=== PATIENT | female | born 1950 | race Caucasian/White ===

== ENCOUNTER → 2016-10-23 | Day surgery (SDC) | payer OTHER, MEDICARE ==
[~2016-10-23] MED LIST: ASPI81TA2 PO; ATOR20TA; CHOL400C PO; DICL50TA2 PO; ESTR0.5T PO; FENTANYL PF 100 MCG/2 ML VIAL. IV PRN; HYDROMORPHONE 2 MG/ML VIAL. IV PRN; LANS30CA17 PO; LEVO500T38 PO; LIDOCAINE 1% 1 ML SYRINGE. ID PRN; LIDOCAINE 2% PF Vial for OR 5 ML VIAL. ONE; LORA10TA68; METO25TA2 PO; METR500T PO; MORPHINE SULFATE 2 MG/ML DISP.SYRIN. IV PRN; OMEG500C; ONDANSETRON PF 4 MG/2 ML VIAL. IV PRN; POTA99TA PO; PROCHLORPERAZINE 10 MG/2 ML VIAL. IV PRN; PROPOFOL 20 ML IV ONE; SUCR1TAB PO; VALS1TAB22 PO; [UNRECOGNIZED DRUG - CODE] PO
[2016-10-23] MEDS: IV RINGERS,LACTATED 1000ML 1,000 ML IV SCH ×2 (07:00→13:40)
[2016-10-23 09:03] VITALS: BP 127/60
== END | disposition home or self-care (01) ==
LOC: ENDOS 07:03
PROVIDERS: ATTEND Internal Medicine Gastroenterology
DX: K64.1 Second degree hemorrhoids (principal); K57.30 Diverticulosis of large intestine without perforation or abscess without bleeding; J44.9 Chronic obstructive pulmonary disease, unspecified; I10 Essential (primary) hypertension; K21.9 Gastro-esophageal reflux disease without esophagitis; E78.5 Hyperlipidemia, unspecified; M15.9 Polyosteoarthritis, unspecified; Z83.3 Family history of diabetes mellitus; Z90.710 Acquired absence of both cervix and uterus; Z90.49 Acquired absence of other specified parts of digestive tract; Z98.51 Tubal ligation status; Z96.60 Presence of unspecified orthopedic joint implant
CPT/HCPCS: 45378; J2704